=== PATIENT | male | born 1985 | race Caucasian/White ===

== ENCOUNTER 2017-12-18 17:43 | Emergency (ER) | payer OTHER ==
[~2017-12-18] VITALS: Ht 175.3 cm; Wt 79.4 kg
[2017-12-18 17:44] VITALS: BP 137/80
--- NOTE | 2017-12-18 17:51 | NUR ---
PT TAKEN TO BED 9
--- NOTE | 2017-12-18 18:00 | NUR ---
PT. CAME INTO THE ED DUE TO LOWER BACK PAIN X TODAY. PT. STATES " I WAS SKATING THIS MORNING AND I THINK I PULLED A MUSCLE MY LOWER BACK STARTED HURTING I TOOK SOME ADVIL ABOUT 4 HRS AGO AND IT HELPED, I GOT TO WORK AND TOLD THEM AND THEY SAID I NEED TO GET CHECKED OUT AND A NOTE TO GO BACK TO WORK". NO PAIN AT THIS TIME. ER MD NOTIFIED. WILL CONTINUE TO MONITOR.
[2017-12-18 18:37] VITALS: BP 130/80
--- NOTE | 2017-12-18 18:37 | NUR ---
Patient discharged with v/s stable. Written and verbal after care instructions given and explained. Patient alert, oriented and verbalized understanding of instructions. Ambulatory with steady gait. All questions addressed prior to discharge. ID band removed. Patient advised to follow up with PMD. Rx of Motrin 400mg given. Patient educated on indication of medication including possible reaction and side effects. Opportunity to ask questions provided and answered.
== END 2017-12-18 18:37 | disposition home or self-care (01) ==
LOC: MED 17:43
DX: S39.012A Strain of muscle, fascia and tendon of lower back, initial encounter (principal); X58.XXXA Exposure to other specified factors, initial encounter; Y93.51 Activity, roller skating (inline) and skateboarding; Y92.89 Other specified places as the place of occurrence of the external cause; Y99.8 Other external cause status
CPT/HCPCS: 99283

== ENCOUNTER 2018-02-02 17:08 | Emergency (ER) | payer OTHER ==
[~2018-02-02] VITALS: Ht 175.3 cm; Wt 81.6 kg
[2018-02-02 17:15] VITALS: BP 125/78
--- NOTE | 2018-02-02 17:19 | NUR ---
PT TRIAGED AND SENT TO ER LOBBY
--- NOTE | 2018-02-02 18:21 | NUR ---
PATIENT AMBULATED TO BED 12.
--- NOTE | 2018-02-02 18:30 | NUR ---
Note undone in EDM - 02/02/18 at 1854 by BRIAN 32M BIB SELF C/O NON PRODUCTIVE COUGH SINCE LAST NIGHT. PT DENIES ANY N/V/D OR FEVERS. AOX4 WITH EVEN AND STEADY GAIT; RR ARE EVEN AND UNLABORED. VSS; NAD; PATIENT POSITIONED FOR COMFORT; NAD; VSS; AWAITING ER MD PRICE. ALL NEEDS MET AT THIS TIME.
--- NOTE | 2018-02-02 19:17 | NUR ---
Pt report given to Emeter[facility] SWIFT. Transfer of care at this time.
--- NOTE | 2018-02-02 19:20 | NUR ---
ASSUMED CARE OF PT AT THIS TIME. PT AWAITS MD PRICE. EDMUNDO. VSS. WILL CONTINUE TO MONITOR.
--- NOTE | 2018-02-02 19:50 | NUR ---
PATIENT LEFT WITHOUT BEING SEEN BY DR. CARMICHAEL. NO FURTHER CARE PROVIDED FOR PATIENT.
== END 2018-02-02 19:50 | disposition left against medical advice (07) ==
LOC: MED 17:08
DX: R05 Cough (principal); Z53.21 Procedure and treatment not carried out due to patient leaving prior to being seen by health care provider

== ENCOUNTER 2018-03-03 15:40 | Emergency (ER) | payer OTHER ==
--- NOTE | 2018-03-03 16:00 | NUR ---
PATIENT CALLED X 1 NO REPONSE, TOLD ADMITTING HE WAS LEAVING.
== END 2018-03-03 16:00 | disposition left against medical advice (07) ==
LOC: MED 15:40
DX: T16.9XXA Foreign body in ear, unspecified ear, initial encounter (principal); Z53.21 Procedure and treatment not carried out due to patient leaving prior to being seen by health care provider; X58.XXXA Exposure to other specified factors, initial encounter; Y93.89 Activity, other specified; Y92.89 Other specified places as the place of occurrence of the external cause; Y99.8 Other external cause status

== ENCOUNTER 2018-06-01 23:57 | Emergency (ER) | payer OTHER ==
[~2018-06-01] VITALS: Ht 175.3 cm; Wt 77.1 kg
[2018-06-02 00:04] VITALS: BP 120/73
[2018-06-02 00:06] VITALS: BP 120/73
--- NOTE | 2018-06-02 00:06 | NUR ---
TO LOBBY A/W BED AMBULATORY
--- NOTE | 2018-06-02 00:15 | NUR ---
PATIENT AMBULATED TO ER BED 6.
--- NOTE | 2018-06-02 00:20 | NUR ---
33 YO M BIB SELF PRESENTS TO THE ED C/O TOOTHACHE X 1 WEEK. PMH-- DENIES RX-- DENIES
[2018-06-02] MEDS ORDERED: IBUPROFEN 800 MG TAB PO ONE (01:00)
--- NOTE | 2018-06-02 01:00 | NUR ---
PATIENT ELOPED FROM FACILITY. PT STATED HE DID NOT WANT TO WAIT FOR PAIN MEDICATION. DISCHARGE INSTRUCTIONS NOT GIVEN TO PATIENT. DR. VALDES NOTIFIED.
== END 2018-06-02 01:00 | disposition left against medical advice (07) ==
LOC: MED 23:57
DX: K08.89 Other specified disorders of teeth and supporting structures (principal)
CPT/HCPCS: 99282

== ENCOUNTER 2019-01-11 18:16 | Emergency (ER) | payer OTHER ==
[~2019-01-11] VITALS: Ht 175.3 cm; Wt 70.5 kg
[2019-01-11 18:21] VITALS: BP 119/65
--- NOTE | 2019-01-11 18:27 | NUR ---
Patient ambulated to bed 11. RN evaluating patient at bedside.
--- NOTE | 2019-01-11 18:40 | NUR ---
C/O ITCHY, RAISED RASH TO BILAT BUTTOCKS STARTING YESTERDAY. PT REPORTS RECENTLY USING A NEW SOAP. PT DENIES N/V/D/FEVER OR ANY ACCOMPANYING SYMPTOMS ALONG WITH THE RASH. BED IN LOW POSTION, SIDE RAIL UP X1.
--- NOTE | 2019-01-11 18:50 | NUR ---
DR. BENÍTEZ AT BEDSIDE EVALUATING PT
[2019-01-11 19:20] VITALS: BP 119/65
--- NOTE | 2019-01-11 19:20 | NUR ---
Patient discharged with v/s stable. Written and verbal after care instructions ABOUT CONTACT DERMATITIS AND INTERTRIGO given and explained. Patient alert, oriented and verbalized understanding of instructions. Ambulatory with steady gait. All questions addressed prior to discharge. ID band removed. Patient advised to follow up with PMD. Rx of HYDROCORTISONE given. Patient educated on indication of medication including possible reaction and side effects. Opportunity to ask questions provided and answered.
== END 2019-01-11 19:20 | disposition home or self-care (01) ==
LOC: MED 18:16
DX: L25.9 Unspecified contact dermatitis, unspecified cause (principal); L74.0 Miliaria rubra
CPT/HCPCS: 99282

== ENCOUNTER 2019-04-24 12:47 | Emergency (ER) | payer MEDICAID, OTHER ==
[~2019-04-24] VITALS: Ht 175.3 cm; Wt 75.7 kg
[2019-04-24 13:07] VITALS: BP 123/73
--- NOTE | 2019-04-24 13:15 | NUR ---
34 Y/O MALE C/O LOWER RIGHT AXIAL ABD PAIN THAT RADIATES TO LOWER RIGHT ABD TO LOWER RIGHT BACK THAT FEELS LIKE A PINCHNG WITH PAIN 3/10. PT STATES PAIN OCCURED 1 WEEK AGO POST DRINKING 2 MONSTER ENERGY DRINKS. PT TOOK IBUPROFEN THIS MORNING WHEN PAIN WAS 9/10 AND POST MEDICATION PAIN WAS 3/10. PT LINDSEY ANY TRAUMA. DENIES N/V/D; SKIN IS PINK/WARM/DRY; AAOX4 WITH EVEN AND STEADY GAIT; PT DENIES ANY FEVER, CP, SOB, OR COUGH AT THIS TIME; VSS; PATIENT POSITIONED FOR COMFORT; HOB ELEVATED; BEDRAILS UP X1; BED DOWN AND LOCKED . MEDICAL HX: PT DENIES NKA
--- NOTE | 2019-04-24 14:21 | NUR ---
URINE DIP DONE
[2019-04-24 14:43] VITALS: BP 124/74
== END 2019-04-24 14:43 | disposition home or self-care (01) ==
LOC: MED 12:47
DX: R10.31 Right lower quadrant pain (principal); M54.9 Dorsalgia, unspecified; N50.811 Right testicular pain
CPT/HCPCS: 81002; 99282

== ENCOUNTER 2019-05-02 11:49 | Emergency (ER) | payer MEDICAID ==
[~2019-05-02] VITALS: Ht 175.3 cm; Wt 75.7 kg
[2019-05-02 12:02] VITALS: BP 138/69
[2019-05-02] MEDS ORDERED: IBUP-1842 PO (12:06)
[2019-05-02] MEDS ORDERED: ACETAMINOPHEN 325 MG TAB PO ONE (13:50)
[2019-05-02 14:11] LABS: ANION GAP 11.5 (8-16); CARBON DIOXIDE 28.5 mmol/L (21-32); CREATININE 1.1 mg/dL (0.6-1.3)
[2019-05-02 14:37] VITALS: BP 138/69
== END 2019-05-02 14:36 | disposition home or self-care (01) ==
LOC: MED 11:49
DX: R10.9 Unspecified abdominal pain (principal); Z79.899 Other long term (current) drug therapy
CPT/HCPCS: 36415; 80048; 81002; 99283

== ENCOUNTER 2019-05-05 04:20 | Emergency (ER) | payer MEDICAID ==
[~2019-05-05] VITALS: Ht 175.3 cm; Wt 78.5 kg
[~2019-05-05 04:20] MED LIST: IBUP-1842 PO
[2019-05-05 04:25] VITALS: BP 129/79
[2019-05-05] MEDS ORDERED: ALUMINUM HYD/MAG/SIMETHICONE 30 ML UDC PO ONE (04:40)
[2019-05-05] MEDS ORDERED: ONDANSETRON 4 MG ODT PO ONE (04:40)
[2019-05-05] MEDS ORDERED: FAMOTIDINE 20 MG TAB PO ONE (04:40)
[2019-05-05 04:59] LABS: BASOPHILS # (AUTO) 0.1 K/uL (0.00-0.22); BASOPHILS % (AUTO) 0.8 % (0.0-2.0); EOSINOPHILS # (AUTO) 0.5 K/uL (0-0.4); EOSINOPHILS % (AUTO) 6.1 % (0.0-4.0); HEMATOCRIT 41.7 % (36-52); HEMOGLOBIN 14.2 g/dL (12.0-18.0); LYMPHOCYTES # (AUTO) 2.1 K/uL (2.0-11.5); LYMPHOCYTES % (AUTO) 26.9 % (20.5-51.1); MEAN CORPUSCULAR HEMOGLOBIN 29 pg (27-31); MEAN CORPUSCULAR HGB CONC 34 g/dL (33-37); MEAN CORPUSCULAR VOLUME 85.6 fL (80-94); MONOCYTES # (AUTO) 0.8 K/uL (0.8-1.0); MONOCYTES % (AUTO) 10.1 % (1.7-9.3); NEUTROPHILS # (AUTO) 4.4 K/uL (1.8-7.7); NEUTROPHILS % (AUTO) 56.1 % (42.2-75.2); PLATELET COUNT (AUTO) 210 K/uL (140-450); RED BLOOD CELL COUNT(AUTO) 4.87 MIL/uL (4.20-6.10); RED CELL DISTRIBUTION WIDTH 12.8 % (11.6-13.7); WHITE BLOOD COUNT (AUTO) 7.9 K/uL (4.8-10.8)
--- NOTE | 2019-05-05 05:02 | NUR ---
34 Y/O M PRESENTS TO ED C/O LT FLANK PAIN 5/10 RADIATING TO LOWER ABD X 3 WEEKS. PER PT, LT FLANK PAIN HAS BEEN CONTINUOUS SINCE 3 WEEKS BUT PAIN IS NOW RADIATING TO LOWER ABD. PER PT, PT HAS BEEN TO ER FOR THE SAME COMPLAIN AND HAS BEEN TAKING MOTRIN. PT STATES THAT HE "DRINKS A LOT OF ENERGY DRINKS AND MINIMAL WATER." ABD IS SOFT, FLAT AND NON-DISTENDED, NO REBOUND TENDERNESS. PT DENIES VOMITING BUT ADMITS TO NAUSEA. PT ALSO DENIES PAIN DURING URINATION. BREATHING UNLABORED, NO RESPIRATORY DISTRESS NOTED. BED IN LOWEST POSITION, SIDE RAIL UP X1. PMH: DENIES NKA
[2019-05-05 05:16] LABS: ALBUMIN 3.3 g/dL (3.4-5.0); ANION GAP 8.8 (8-16); CARBON DIOXIDE 30.4 mmol/L (21-32); POTASSIUM 4.2 mmol/L (3.5-5.1); TOTAL BILIRUBIN 0.3 mg/dL (0.0-1.0)
--- NOTE | 2019-05-05 05:21 | NUR ---
PT TRANSPORTED TO [facility] VIA WHEELCHAIR.
--- NOTE | 2019-05-05 05:34 | NUR ---
DR. JUAREZ AT BEDSIDE EXPLAINING LAB RESULTS TO PT.
--- NOTE | 2019-05-05 05:34 | NUR ---
PT BACK FROM [facility] VIA WHEELCHAIR.
[2019-05-05 05:44] VITALS: BP 129/79
== END 2019-05-05 05:44 | disposition home or self-care (01) ==
LOC: MED 04:20
DX: K25.7 Chronic gastric ulcer without hemorrhage or perforation (principal); K59.00 Constipation, unspecified; F17.210 Nicotine dependence, cigarettes, uncomplicated; Z79.899 Other long term (current) drug therapy
CPT/HCPCS: 36415; 74021; 80053; 83690; 85025; 99284; Q0162; 81002

== ENCOUNTER 2019-05-07 11:28 | Emergency (ER) | payer MEDICAID ==
[~2019-05-07] VITALS: Ht 177.8 cm; Wt 74.4 kg
--- NOTE | 2019-05-07 11:28 | NUR ---
AMBULATED TO BED 11
[2019-05-07 11:37] VITALS: BP 130/78
--- NOTE | 2019-05-07 11:41 | NUR ---
PT C/O ABD DISCOMFORT RADIATING TO RT FLANK AREA AND BLOATING FOR 3 WEEKS, VOMITING YESTERDAY. LAST NORMAL BOWEL MOVEMENT WAS LAST SAT. -MURPHIN'S SIGN, -CVAT. PATIENT STATES PAIN OF 5/10 AT THIS TIME; VSS; PATIENT POSITIONED FOR COMFORT; HOB ELEVATED; BEDRAILS UP X1; BED DOWN. ER MD MADE AWARE OF PT STATUS.
--- NOTE | 2019-05-07 12:25 | NUR ---
DR. AMBRIZ IS EVALUATING PT AT BEDSIDE.
--- NOTE | 2019-05-07 12:44 | NUR ---
URINE SAMPLE OBTAINED AND SENT TO THE LAB.
--- NOTE | 2019-05-07 12:46 | NUR ---
TAKEN TO CT VIA W/C
--- NOTE | 2019-05-07 12:52 | NUR ---
PT IS BACK FROM CT SCAN VIA WHEELCHAIR ASSISTED BY TRACK LAYER.
[2019-05-07 13:07] LABS: APPEARANCE,URINE CLEAR (CLEAR); BILIRUBIN,URINE NEGATIVE (NEGATIVE); BLOOD, URINE NEGATIVE (NEGATIVE); COLOR,URINE YELLOW (YELLOW); LEUKOCYTE ESTERASE ,URINE NEGATIVE (NEGATIVE); NITRITE, URINE NEGATIVE (NEGATIVE); PH,URINE 5.5 (5.0-9.0); UGLUCOSE NEGATIVE (NEGATIVE)
[2019-05-07 13:34] LABS: BASOPHILS # (AUTO) 0.1 K/uL (0.00-0.22); BASOPHILS % (AUTO) 0.6 % (0.0-2.0); EOSINOPHILS # (AUTO) 0.1 K/uL (0-0.4); EOSINOPHILS % (AUTO) 0.7 % (0.0-4.0); HEMATOCRIT 43.6 % (36-52); HEMOGLOBIN 14.9 g/dL (12.0-18.0); LYMPHOCYTES # (AUTO) 1.1 K/uL (2.0-11.5); LYMPHOCYTES % (AUTO) 7.9 % (20.5-51.1); MEAN CORPUSCULAR HEMOGLOBIN 29 pg (27-31); MEAN CORPUSCULAR HGB CONC 34 g/dL (33-37); MEAN CORPUSCULAR VOLUME 85.3 fL (80-94); MONOCYTES # (AUTO) 1.7 K/uL (0.8-1.0); MONOCYTES % (AUTO) 11.7 % (1.7-9.3); NEUTROPHILS # (AUTO) 11.3 K/uL (1.8-7.7); NEUTROPHILS % (AUTO) 79.1 % (42.2-75.2); PLATELET COUNT (AUTO) 230 K/uL (140-450); RED BLOOD CELL COUNT(AUTO) 5.12 MIL/uL (4.20-6.10); RED CELL DISTRIBUTION WIDTH 12.7 % (11.6-13.7); WHITE BLOOD COUNT (AUTO) 14.2 K/uL (4.8-10.8)
--- NOTE | 2019-05-07 13:36 | NUR ---
Pt laying in bed, rr even and unlabored. VSS, afebrile. Reports 5/10 tolerable BL lower abd/suprapubic pain at this time. Refused request for pain meds at this time. All needs met.
[2019-05-07 13:54] LABS: ALBUMIN 3.7 g/dL (3.4-5.0); ANION GAP 11.4 (8-16); CREATININE 1.2 mg/dL (0.6-1.3); POTASSIUM 4.4 mmol/L (3.5-5.1); TOTAL BILIRUBIN 1.3 mg/dL (0.0-1.0)
[2019-05-07 14:48] VITALS: BP 118/61
--- NOTE | 2019-05-07 14:48 | NUR ---
Patient discharged with v/s stable. Written and verbal after care instructions given and explained. Patient alert, oriented and verbalized understanding of instructions. Ambulatory with steady gait. All questions addressed prior to discharge. ID band not on pt's wrist. Patient advised to follow up with PMD. Rx of [place] given. Patient educated on indication of medication including possible reaction and side effects. Opportunity to ask questions provided and answered.
== END 2019-05-07 14:48 | disposition home or self-care (01) ==
LOC: MED 11:28
DX: N13.30 Unspecified hydronephrosis (principal); F17.200 Nicotine dependence, unspecified, uncomplicated; Z79.899 Other long term (current) drug therapy
CPT/HCPCS: 36415; 80053; 81003; 83690; 85025; 99284

== ENCOUNTER 2020-09-23 10:27 | Emergency (ER) | payer OTHER, SELFPAY ==
[~2020-09-23] VITALS: Ht 175.3 cm; Wt 79.4 kg
[2020-09-23 10:59] VITALS: BP 128/76
--- NOTE | 2020-09-23 11:04 | NUR ---
TENT1
--- NOTE | 2020-09-23 11:30 | NUR ---
C/O CHENG AFTER WORKING IN [employer] LAST NIGHT. PMH: MARIJUANA SMOKING
--- NOTE | 2020-09-23 12:50 | NUR ---
COVID SWAB DONE.
--- NOTE | 2020-09-23 12:50 | NUR ---
Patient discharged with v/s stable. Written and verbal after care instructions given and explained. Patient verbalized understanding. Ambulatory with steady gait. All questions addressed prior to discharge. Advised to follow up with PMD.
[2020-09-23 12:51] VITALS: BP 128/76
== END 2020-09-23 12:50 | disposition home or self-care (01) ==
LOC: MED 10:27
DX: M79.10 Myalgia, unspecified site (principal); Z20.822 Contact with and (suspected) exposure to COVID-19; R03.0 Elevated blood-pressure reading, without diagnosis of hypertension; Z79.899 Other long term (current) drug therapy
CPT/HCPCS: 99283; U0003

== ENCOUNTER 2021-12-08 11:10 | Emergency (ER) | payer OTHER ==
[~2021-12-08] VITALS: Ht 175.3 cm; Wt 79.9 kg
[2021-12-08 11:14] VITALS: BP 154/96
[2021-12-08] MEDS ORDERED: BENZ150C2 PO (11:54)
--- NOTE | 2021-12-08 12:11 | NUR ---
Patient discharged with v/s stable. Written and verbal after care instructions given. Patient alert, oriented and verbalized understanding of instructions. Ambulatory with steady gait. All questions addressed prior to discharge. ID band removed. Patient advised to follow up with PMD. Rx of Benzonatate given. Opportunity to ask questions provided and answered. WORK NOTE HANDED TO PATIENT.
--- NOTE | 2021-12-08 12:12 | NUR ---
Chart checked and completed. The patient's care was reviewed and supervised by Mariela Rausch RN.
== END 2021-12-08 12:11 | disposition home or self-care (01) ==
LOC: MED 11:10
DX: R05.9 Cough, unspecified (principal); Z79.899 Other long term (current) drug therapy; Z79.1 Long term (current) use of non-steroidal anti-inflammatories (NSAID)
CPT/HCPCS: 99283

== ENCOUNTER 2023-08-10 20:11 | Emergency (ER) | payer OTHER ==
[~2023-08-10] VITALS: Ht 167.6 cm; Wt 81.6 kg
[~2023-08-10 20:11] MED LIST changes: +BENZ150C7 PO
[2023-08-10 20:43] VITALS: BP 118/87; PULSE 82; RESP 14; TEMP 98.3; O2SAT 99
[2023-08-10] MEDS ORDERED: IMO2 PO (20:54)
[2023-08-10 21:35] LABS: BILIRUBIN,URINE 1+ (NEGATIVE); BLOOD, URINE NEGATIVE (NEGATIVE); COLOR,URINE YELLOW (YELLOW); LEUKOCYTE ESTERASE ,URINE NEGATIVE (NEGATIVE); NITRITE, URINE NEGATIVE (NEGATIVE); PROTEIN,URINE 1+ (NEGATIVE); UGLUCOSE NEGATIVE (NEGATIVE); UROBILINOGEN,URINE 0.2 EU/dL (0.2 - 1)
[2023-08-10 21:39] LABS: APPEARANCE,URINE SLIGHTLY HAZY (CLEAR)
[2023-08-10 21:43] LABS: ICTOTEST POSITIVE (NEGATIVE); RBC,URINE 0 /HPF (0-5); WBC,URINE 0-5 /HPF (0-5)
[2023-08-10 21:43] LABS: BASOPHILS % (AUTO) 0.2 % (0.0-2.0); EOSINOPHILS # (AUTO) 0.2 K/uL (0-0.4); EOSINOPHILS % (AUTO) 1.5 % (0.0-4.0); HEMOGLOBIN 16.9 g/dL (12.0-18.0); LYMPHOCYTES # (AUTO) 1.5 K/uL (2.0-11.5); LYMPHOCYTES % (AUTO) 11.5 % (20.5-51.1); MEAN CORPUSCULAR HEMOGLOBIN 28 pg (27-31); MEAN CORPUSCULAR HGB CONC 33 g/dL (33-37); MEAN CORPUSCULAR VOLUME 85.3 fL (80-94); MONOCYTES # (AUTO) 0.9 K/uL (0.8-1.0); MONOCYTES % (AUTO) 7.2 % (1.7-9.3); NEUTROPHILS # (AUTO) 10.1 K/uL (1.8-7.7); NEUTROPHILS % (AUTO) 79.6 % (42.2-75.2); PLATELET COUNT (AUTO) 277 K/uL (140-450); RED BLOOD CELL COUNT(AUTO) 5.97 MIL/uL (4.20-6.10); RED CELL DISTRIBUTION WIDTH 12.9 % (11.6-13.7); WHITE BLOOD COUNT (AUTO) 12.7 K/uL (4.8-10.8)
[2023-08-10 21:44] LABS: BACTERIA,URINE 1+ /HPF (None Seen); MUCUS,URINE None Seen /LPF (None Seen); SQUAMOUS EPITHELIAL CELL,UR 0-3 (FEW) /LPF (0-3 (FEW))
[2023-08-10 22:15] LABS: ANION GAP 13.8 (8-16); CALCIUM 9.1 mg/dL (8.5-10.1); CARBON DIOXIDE 27.7 mmol/L (21-32); CREATININE 1.2 mg/dL (0.6-1.3); POTASSIUM 4.5 mmol/L (3.5-5.1)
[2023-08-10 22:20] LABS: TOTAL PROTEIN, SERUM 8.3 g/dL (6.4-8.2)
[2023-08-10] MEDS ORDERED: ONDA-188 PO (22:26)
== END 2023-08-10 23:00 | disposition home or self-care (01) ==
LOC: MED 20:11
DX: R10.9 Unspecified abdominal pain (principal); R19.7 Diarrhea, unspecified; Z79.1 Long term (current) use of non-steroidal anti-inflammatories (NSAID); Z79.899 Other long term (current) drug therapy
CPT/HCPCS: 36415; 80053; 81001; 83690; 85025; 87086; 99283

== ENCOUNTER → 2023-08-12 15:30 | Emergency (ER) | payer SELFPAY ==
[~2023-08-12 15:30] MED LIST changes: +IMO2 PO; +ONDA-188 PO
== END | disposition left against medical advice (07) ==
LOC: MED 15:30
DX: Z53.21 Procedure and treatment not carried out due to patient leaving prior to being seen by health care provider (principal)